=== PATIENT | male | born 1995 | race Caucasian/White ===

== ENCOUNTER → 2016-11-09 | Outpatient (CLI) | payer OTHER ==
[~2016-11-09] MED LIST: CONRAY-43 43% 50ML VIAL (Q9960) As Ordered ONE
--- NOTE | 2016-11-09 09:48 | REP ---
MR arthrography right shoulder: with pre- and post intra-articular gadolinium enhanced saline injected imaging: History: Right shoulder pain. Technique: The injection procedure is performed and dictated separately. Pre- and post intra-articular gadolinium enhanced saline injected imaging is acquired. Imaging planes include axial, oblique coronal, oblique sagittal and ABER projection images. T1 T2-weighted scans are included with and without fat saturation. MRI findings: Preinjection MR imaging shows glenohumeral and acromioclavicular joints are normally aligned. 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 There is no evidence of joint effusion. Subcortical cyst formation is seen in the superolateral humeral head. Post injection imaging shows good filling and enhancement of the right glenohumeral articulation. There is no evidence of loose body. No rotator cuff tear is appreciated. The infraspinatus, subscapularis, and biceps tendons have an intact appearance. Gadolinium enhancement undermining the anterior labrum consistent with a small anterior labral tear. There is increased signal intensity partially undermining the posterior inferior aspect of the labrum as well. The infraspinatus, subscapularis, and biceps tendons have an intact appearance. Impression: 1. No evidence of rotator cuff tear. 2. Evidence of anteroinferior and posteroinferior glenoid labral cartilage disruption consistent with an early tear. 3. Otherwise unremarkable. Signed by Jason Wagner MD 11/09/2016 10:25 A
--- NOTE | 2016-11-09 16:33 | REP ---
Procedure: Right shoulder arthrogram The procedure was performed under the direct supervision of Dr. Wagner. History: Right shoulder pain The benefits and risks including but not limited to pain, infection, bleeding and anaphylaxis were explained to the patient and informed consent was obtained. Technique: The right glenohumeral joint space was localized using fluoroscopic guidance. The skin was prepped and draped in a sterile fashion. 1% lidocaine was used as a local anesthetic. Using fluoroscopic guidance a 22 gauge spinal needle was inserted and advanced into the joint. 0.5 ml of Conray 43 was injected to verify placement. 11 ml of a solution containing 20 ml of sterile saline and 0.15 ml of ProHance was injected into the joint. The needle was removed and the patient was taken to MRI for postprocedural imaging. The the patient tolerated the procedure well and there were no immediate complications. 1 second of fluoro time was utilized for this procedure. Reviewed by CARLOZ Patrick 11/09/2016 03:04 PSigned by Jason Wagner MD 11/09/2016 04:25 P
== END | disposition home or self-care (01) ==
LOC: M RADPRO 06:51
PROVIDERS: ATTEND Physician Assistant
DX: M19.011 Primary osteoarthritis, right shoulder (principal); M85.611 Other cyst of bone, right shoulder
CPT/HCPCS: 23350; 73223; 77002; A9576; Q9960

== ENCOUNTER → 2017-09-03 | Outpatient (CLI) | payer OTHER ==
[~2017-09-03] MED LIST changes: +PROHANCE 279.3MG/ML 15ML VIAL (A9576) As Ordered ONE
--- NOTE | 2017-09-03 17:56 | REP ---
Procedure: Right shoulder arthrogram The procedure was performed under the direct supervision of Dr. Pantoja. History: Right shoulder pain The benefits and risks including but not limited to pain, infection, bleeding and anaphylaxis were explained to the patient and informed consent was obtained. Technique: The right glenohumeral joint space was localized using fluoroscopic guidance. The skin was prepped and draped in a sterile fashion. 1% lidocaine was used as a local anesthetic. Using fluoroscopic guidance a 22 gauge spinal needle was inserted and advanced into the joint. 0.5 ml of Conray 43 was injected to verify placement. 11 ml of a solution containing 20 ml of sterile saline and 0.15 ml of ProHance was injected into the joint. The needle was removed and the patient was taken to MRI for postprocedural imaging. The the patient tolerated the procedure well and there were no immediate complications. Less than 6 seconds of fluoro time was utilized for this procedure. Reviewed by CARLOZ Patrick 09/03/2017 03:39 PSigned by Axel Pantoja MD 09/03/2017 05:47 P
--- NOTE | 2017-09-03 20:26 | REP ---
MRI RIGHT SHOULDER WITHOUT WITH CONTRAST ARTHROGRAM: 09/03/2017. Comparison: MR arthrogram 11/09/2016. Clinical history: Right shoulder pain with popping after lifting injury. Had shoulder surgery at [facility] on 12/25/2016 including anterior and posterior labral repair, subacromial decompression and an open subpectoral biceps tenodesis. Technique: Precontrast coronal T1 and fat suppressed T2 coronal axial and sagittal images followed by gadolinium arthrogram injection and subsequent axial 3D crespo gradient echo, fat suppressed T1, coronal fat suppressed T1 and T2 and an ABER fat suppressed T1 sequence. Findings: Coronal images do show evidence for subacromial decompression. AC joint shows no impingement at the musculotendinous junction of rotator cuff. There is a tiny peripheral acromial spur and mild bursal surface fraying. Some linear intrasubstance signal in the supraspinatus tendon with tendinosis/tendinopathy but no full-thickness tear, retraction of the tendon nor atrophy of the muscle of the supraspinatus. I see no significant subacromial or subdeltoid bursal fluid. Coronal images also show a screw track in the proximal humeral shaft anteriorly consistent with a biceps tenodesis. There is a screw track in the greater tuberosity humeral head from prior rotator cuff repair, remote. The coracoclavicular and coracohumeral ligaments are intact. The patient has had a biceps tenodesis with the proximal biceps tendon cut at the biceps labral anchor. I do not see glenohumeral joint effusion. There is trace amount of fluid in the subcoracoid bursa and in the joint. Some undermining of the superior labrum with contrast present there. The glenohumeral injections showed no loose body. Some anterior labral fraying and the presence of two anchors anteriorly and one posteriorly securing the labrum to the inferior glenoid is noted. No subluxation or dislocation. The bony coracoid was intact. The subscapularis tendon and muscle were unremarkable. The infraspinatus and teres minor tendons and muscles are also intact. No atrophy. Inferior labrum shows a cleft posteriorly and across its inferior margin to the anterior labrum with postoperative changes noted and the anchors as described. After the contrast arthrogram, there was no extension of the glenohumeral joint contrast in the subacromial or subdeltoid bursal spaces indicating rotator cuff was intact. The spinal glenoid notch shows no fluid collection or mass. Impression: 1. There are anterior and posterior anchors in the inferior labrum, two anteriorly and one posteriorly, but I do see a linear thin cleft in the inferior labrum to the anterior and posterior labrums extending toward the superior labrum. The anchors are still in place. I cannot exclude some redetachment.2. Tendinosis/tendinopathy of the supraspinatus without a full-thickness tear and no communication to the subacromial and subdeltoid bursa from fluid in the glenohumeral joint. 3. Status post subacromial decompression with no subacromial bursal fluid and no impingement musculotendinous junction of the rotator cuff by the AC joint. 4. Biceps tenodesis. 5. The subscapularis, infraspinatus and teres minor tendons and muscles intact. Signed by Axel Pantoja MD 09/03/2017 08:48 P
== END ==
LOC: M RADPRO 07:13
PROVIDERS: ATTEND Physician Assistant
DX: M25.511 Pain in right shoulder (principal)
CPT/HCPCS: 23350; 73223; 77002; A9576; Q9960